=== PATIENT | female | born 1980 | race Caucasian/White ===

== ENCOUNTER 2017-08-01 14:28 | Emergency (ER) | payer BC ==
[2017-08-01 14:39] VITALS: O2SAT 100
[2017-08-01] MEDS ORDERED: DiphenhydrAMINE 50 mg/ml Inj IV STA (14:44)
[2017-08-01] MEDS ORDERED: Sodium Chloride 0.9% 1,000 ML IV STA ×2 (14:44→16:44)
--- NOTE | 2017-08-01 14:45 | ED PDOC ---
HPI: Allergic Reaction Time Seen by Provider: 08/01/17 14:44 Chief Complaint (Nursing): Allergic Reaction Chief Complaint (Provider): hives History Per: Patient Additional Complaint(s): 37 year old female presents to the ED for evaluation of diffuse urticarial rash. Patient states she was walking through the park and developed spontaneous rash today. Patient has history of idiopathic urticaria and has had allergy testing in the past but all tests have come back negative. Patient denies any shortness of breath or throat discomfort. Patient also states she is about 6 weeks and her LMP was 06/16/17. Patient has mild cramping abd pain that started yesterday. She has not started care as of yet. PMD: No Family Provider Past Medical History Reviewed: Historical Data, Nursing Documentation, Vital Signs Vital Signs: Last Vital Signs Temp 99.1 F 08/01/17 14:36 Pulse 94 H 08/01/17 14:36 Resp 18 08/01/17 14:36 BP 120/75 08/01/17 14:36 Pulse Ox 100 08/01/17 14:36 - Medical History PMH: No Chronic Diseases - Family History Family History: States: No Known Family Hx - Living Arrangements Living Arrangements: With Family - Social History Current smoker - smoking cessation education provided: No Alcohol: None Drugs: Denies - Home Medications Home Medications: Ambulatory Orders Medication Instructions Recorded Nitrofurantoin Macrocrystals 100 mg PO BID #14 cap 08/01/17 [Macrobid] Comb No.42/Folic Acid 1 tab PO DAILY #60 ctb 08/01/17 [Prena1 Chew] - Allergies Allergies/Adverse Reactions: Allergies Allergy/AdvReac Type Severity Reaction Status Date / Time Penicillins Allergy RASH Verified 08/01/17 14:36 Review of Systems ROS Statement: Except As Marked, All Systems Reviewed And Found Negative ENT: Negative for: Throat Pain Respiratory: Negative for: Shortness of Breath, SOB with Exertion, Wheezing Gastrointestinal: Positive for: Abdominal Pain (currently ). Negative for: Nausea, Vomiting Skin: Positive for: Rash Physical Exam - Reviewed Nursing Documentation Reviewed: Yes Vital Signs Reviewed: Yes - Physical Exam Appears: Positive for: Non-toxic, No Acute Distress Skin: Positive for: Normal Color, Rash (diffuse urticarial rash noted to entire body) Eye Exam: Positive for: Normal appearance ENT: Positive for: Normal ENT Inspection Cardiovascular/Chest: Positive for: Regular Rate, Rhythm Respiratory: Positive for: Normal Breath Sounds. Negative for: Wheezing, Respiratory Distress Gastrointestinal/Abdominal: Positive for: Soft. Negative for: Tenderness, Distended, Guarding Extremity: Positive for: Normal ROM. Negative for: Pedal Edema Neurologic/Psych: Positive for: Alert, Oriented (x3) - Laboratory Results Result Diagrams: 08/01/17 15:44 08/01/17 15:44 Urine POC: Positive Urine dip results: Positive for: Leukocyte Esterase (small), Blood (trace). Negative for: Nitrate, Ketones, Glucose, Bilirubin, Protein - ECG O2 Sat by Pulse Oximetry: 100 (RA) Pulse Ox Interpretation: Normal - Other Rad OB TV US X-Ray: Read By Radiologist X-Ray Interpretation: see below Disposition - Clinical Impression Clinical Impression: Acute urticaria, Threatened miscarriage, Urinary tract infection - Patient ED Disposition Is Patient to be Admitted: No Counseled Patient/Family Regarding: Studies Performed, Diagnosis, Need For Followup, Rx Given - Disposition [facility] Disposition: Routine/Home Disposition Time: 17:07 Condition: STABLE Additional Instructions: TAKE 2 TAB OVER THE COUNTER BENADRYL EVERY 6 HRS NEEDED FOR HIVES. TAKE 20 MG PEPCID DAILY WELL FOR HIVES. TAKE RX MEDS DIRECTED. FOLLOW UP WITH YOUR OB. Prescriptions: Nitrofurantoin Macrocrystals [Macrobid] 100 mg PO BID #14 cap Comb No.42/Folic Acid [Prena1 Chew] 1 tab PO DAILY #60 ctb Instructions: Hives, Urinary Tract Infection, Adult (DC), Threatened Miscarriage (DC) Forms: [email or web address] (Mongolian) Medical Decision Making Medical Decision Making: Time: 1444 Initial Impression: 37 year old female with urticarial rash, currently 6 weeks Initial Plan: --Benadryl 50mg IV --Normal Saline 1000 mls/hr --Pepcid 20mg IV Patient went to bathroom in ED and states she noticed vaginal bleeding, will order US, beta quant, type and screen, urine dip US: FINDINGS: UTERUS: A gestational sac is identified within the endometrial cavity with a mean sac diameter of 2.1 cm corresponds gestational age of 6 weeks 4 days. Yolk sac measures 0.2 cm and pole measures 0.7 cm. Mean crown-rump length measurement corresponds to 6 weeks 4 days gestational age. cardiac activity is recorded 134 beats per minute. No suspicious decidual changes to suggest hemorrhage. Estimated date of delivery 03/23/2018. Uterus measures 8.9 x 6.5 x 6.9 cm, retroverted. Inhomogeneous myometrial echotexture without focal mass appreciable. CERVIX: Measures 3.1 cm. Long and closed. No cervical abnormality seen. RIGHT OVARY: Measures 6.9 x 3.3 x 3.1 cm. No mass lesion. Normal flow. There is a likely corpus luteum cyst identified measuring 2.5 x 2.3 x 2.0 cm with soft tissue periphery. A thin simple cyst measures 3.1 x 2.8 x 3.1 cm which may reflect a paraovarian cyst. Trace fluid is seen in the right X compartment as well. LEFT OVARY: Measures 2.3 x 1.3 x 2.7 cm. No solid mass. Normal flow. Multiple small follicles identified. FREE FLUID: None. OTHER FINDINGS: None. IMPRESSION: A single viable intrauterine gestation is identified early in the 1st trimester at 6 weeks 4 days estimated gestational age which is concordant with LMP derived dates. No gestational hemorrhage identified at this time. 2.5 cm corpus luteum cyst with 3.1 cm simple right ovarian cyst or paraovarian cyst adjacent to it. Patient is aware of all diagnostic testing results, all questions answered. Patient reports marked improvement to pruritus after meds given, rash has subsided considerably. Patient was advised to continue with Benadryl and Pepcid for rash. UTI noted, Macrobid prescription given, patient also given prescription for vitamins. She was advised to follow-up with her OB. Scribe Attestation: Documented by Eva De La Fuente, acting as a scribe for Nahomi Lynn PA-C. Provider Scribe Attestation: All medical record entries made by the Scribe were at my direction and personally dictated by me. I have reviewed the chart and agree that the record accurately reflects my personal performance of the history, physical exam, medical decision making, and the department course for this patient. I have also personally directed, reviewed, and agree with the discharge instructions and disposition. Results - Lab Results Lab Results: 08/01/17 08/01/17 08/01/17 16:03 15:44 15:44 WBC 7.0 RBC 4.17 Hgb 11.5 L Hct 36.3 MCV 87.2 MCH 27.6 MCHC 31.7 L RDW 12.9 Plt Count 158 MPV 10.8 Neut % (Auto) 77.6 H Lymph % (Auto) 13.9 L [place] % (Auto) 7.5 Eos % (Auto) 0.6 Baso % (Auto) 0.4 Neut # (Auto) 5.5 Lymph # (Auto) 1.0 [place] # (Auto) 0.5 Eos # (Auto) 0.0 Baso # (Auto) 0.0 Sodium 139 Potassium 3.8 Chloride 105 Carbon Dioxide 22 Anion Gap 16 BUN 10 Creatinine 0.5 L Est GFR ( Amer) > 60 Est GFR (Non-Af Amer) > 60 Random Glucose 92 Calcium 8.8 Total Bilirubin 0.6 AST 21 ALT 29 Alkaline Phosphatase 74 Total Protein 7.5 Albumin 4.2 Globulin 3.3 Albumin/Globulin Ratio 1.3 Beta HCG, Quant 41491.00 Blood Type A POSITIVE Antibody Screen Negative BBK History Checked Patient has bt
[2017-08-01] MEDS ORDERED: DiphenhydrAMINE 50 mg/ml Inj ONE (14:51)
[2017-08-01] MEDS ORDERED: Famotidine 20mg/50ml 20 MG/50 ML BAG IVPB ONE ×2 (14:56→15:00)
[2017-08-01 15:51] LABS: BASO % 0.4 % (0.0-2.0); EOS % 0.6 % (0.0-4.0); HEMOGLOBIN 11.5 g/dL (12.0-16.0); LYMPH % 13.9 % (20.0-40.0); MEAN CELL VOLUME 87.2 fl (81.0-99.0); MEAN CORPUSCULAR HEMOGLOBIN 27.6 pg (27.0-31.0); MEAN CORPUSCULAR HGB CONC 31.7 g/dL (33.0-37.0); MEAN PLATELET VOLUME 10.8 fl (7.2-11.7); MONO # 0.5 K/uL (0.0-0.8); MONO % 7.5 % (0.0-10.0); NEUT # 5.5 K/uL (1.8-7.0); NEUT % 77.6 % (50.0-75.0); RBC 4.17 Mil/uL (3.80-5.20); RED CELL DISTRIBUTION WIDTH 12.9 % (11.5-14.5)
[2017-08-01 16:05] LABS: ALB/GLOB RATIO 1.3 (1.0-2.1); ALBUMIN 4.2 g/dL (3.5-5.0); ALT/SGPT 29 U/L (9-52); AST/SGOT 21 U/L (14-36); BLOOD UREA NITROGEN 10 mg/dl (7-17); CALCIUM 8.8 mg/dL (8.4-10.2); GFR AFRICAN-AMERICAN > 60; GFR NON-AFRICAN AMERICAN > 60
--- NOTE | 2017-08-01 16:47 | US ---
PROCEDURE: OB Pelvic Ultrasound HISTORY: approx 6 weeks with vaginal bleeding and abd pain LMP: 06/13/2017 suggesting 6 week 4 day gestation. COMPARISON: None available. FINDINGS: UTERUS: A gestational sac is identified within the endometrial cavity with a mean sac diameter of 2.1 cm corresponds gestational age of 6 weeks 4 days. Yolk sac measures 0.2 cm and pole measures 0.7 cm. Mean crown-rump length measurement corresponds to 6 weeks 4 days gestational age. cardiac activity is recorded 134 beats per minute. No suspicious decidual changes to suggest hemorrhage. Estimated date of delivery 03/23/2018. Uterus measures 8.9 x 6.5 x 6.9 cm, retroverted. Inhomogeneous myometrial echotexture without focal mass appreciable. CERVIX: Measures 3.1 cm. Long and closed. No cervical abnormality seen. RIGHT OVARY: Measures 6.9 x 3.3 x 3.1 cm. No mass lesion. Normal flow. There is a likely corpus luteum cyst identified measuring 2.5 x 2.3 x 2.0 cm with soft tissue periphery. A thin simple cyst measures 3.1 x 2.8 x 3.1 cm which may reflect a paraovarian cyst. Trace fluid is seen in the right X compartment as well. LEFT OVARY: Measures 2.3 x 1.3 x 2.7 cm. No solid mass. Normal flow. Multiple small follicles identified. FREE FLUID: None. OTHER FINDINGS: None. IMPRESSION: A single viable intrauterine gestation is identified early in the 1st trimester at 6 weeks 4 days estimated gestational age which is concordant with LMP derived dates. No gestational hemorrhage identified at this time. 2.5 cm corpus luteum cyst with 3.1 cm simple right ovarian cyst or paraovarian cyst adjacent to it.
[2017-08-01 17:02] VITALS: BP 108/67; PULSE 67; RESP 19; TEMP 98.1
== END 2017-08-01 17:29 | disposition home or self-care (01) ==
LOC: H.ER 14:28
DX: L50.0 Allergic urticaria (principal); O20.0 Threatened abortion; O23.41 Unspecified infection of urinary tract in pregnancy, first trimester; O99.711 Diseases of the skin and subcutaneous tissue complicating pregnancy, first trimester; O9A.211 Injury, poisoning and certain other consequences of external causes complicating pregnancy, first trimester; T78.40XA Allergy, unspecified, initial encounter; Z3A.01 Less than 8 weeks gestation of pregnancy; Z88.0 Allergy status to penicillin
CPT/HCPCS: 76817; 80053; 81025; 84702; 85025; 86850; 86900; 87086; 96365; 96375; 99284; J1200; J7030